=== PATIENT | female | born 1960 | race African-American/Black ===

== ENCOUNTER 2017-10-09 08:28 | Outpatient (CLI) | payer OTHER ==
--- NOTE | 2017-10-09 15:20 | MMO ---
BILATERAL DIGITAL SCREENING MAMMOGRAMS WITH CAD: HISTORY: There are scattered fibroglandular densities. COMPARISON: 10/07/2015 and 12/18/2013 FINDINGS: A focal density is seen in the left retroareolar region, which demonstrates interval worsening since 2013. No suspicious calcifications are otherwise identified in either breast. IMPRESSION: BI-RADS Category 0 - Incomplete assessment. I recommended left diagnostic mammogram and ultrasound. POS: MACK[facility]IE
== END 2017-10-09 08:29 | disposition home or self-care (01) ==
LOC: SCSMAMMO 08:28
PROVIDERS: ATTEND Family Medicine
DX: Z12.31 Encounter for screening mammogram for malignant neoplasm of breast (principal)
CPT/HCPCS: 77067

== ENCOUNTER 2017-10-18 13:36 | Outpatient (CLI) | payer OTHER | END 2017-10-18 13:37 | disposition home or self-care (01) | LOC: BICMAMMO 13:36 | PROVIDERS: ATTEND Family Medicine | DX: R92.2 Inconclusive mammogram (principal) | CPT/HCPCS: G0279 ==

== ENCOUNTER 2019-11-06 15:15 | Outpatient (CLI) | payer OTHER ==
--- NOTE | 2019-11-06 15:39 | RAD ---
XR Chest Pa Lat STANDARD History: Screening for tuberculosis Comparison: Radiograph 2016 Findings: Lungs are clear. No pneumothorax or effusion. Cardiac silhouette and mediastinal contours a re within normal limits. No acute osseous abnormality. Impression: No acute intrathoracic abnormality.
== END 2019-11-06 15:16 | disposition home or self-care (01) ==
LOC: BICRAD 15:15
PROVIDERS: ATTEND Surgery
DX: Z11.1 Encounter for screening for respiratory tuberculosis (principal)
CPT/HCPCS: 71046

== ENCOUNTER 2021-04-06 12:44 | Outpatient (CLI) | payer OTHER | END 2021-04-06 12:45 | disposition home or self-care (01) | LOC: BICMAMMO 12:44 | PROVIDERS: ATTEND Family Medicine | DX: Z12.31 Encounter for screening mammogram for malignant neoplasm of breast (principal) | CPT/HCPCS: 77063; 77067 ==

== ENCOUNTER 2022-06-30 07:46 | Outpatient (CLI) | payer BC | END 2022-06-30 07:47 | disposition home or self-care (01) | LOC: BICMAMMO 07:46 | PROVIDERS: ATTEND Family Medicine | DX: Z12.31 Encounter for screening mammogram for malignant neoplasm of breast (principal) | CPT/HCPCS: 77063; 77067 ==

== ENCOUNTER 2023-09-28 11:48 | Outpatient (CLI) | payer OTHER | END 2023-09-28 11:49 | disposition home or self-care (01) | LOC: BICMAMMO 11:48 | PROVIDERS: ATTEND Family Medicine | DX: Z12.31 Encounter for screening mammogram for malignant neoplasm of breast (principal) | CPT/HCPCS: 77063; 77067 ==